=== PATIENT | male | born 2000 | race Caucasian/White ===

== ENCOUNTER 2020-11-18 21:26 | Emergency (ER) | payer MEDICAID ==
[~2020-11-18] VITALS: Ht 172.7 cm; Wt 55.5 kg
[2020-11-18] MEDS ORDERED: HYDROcodone/acetaminophen 10/325mg tab PO ONE (21:55)
--- NOTE | 2020-11-18 22:04 | NUR ---
Patient transported to [facility] by wheelchair.
[2020-11-18] MEDS ORDERED: propofol 10mg/ml 20ml vial IV ONE (22:10)
[2020-11-18] MEDS ORDERED: HYDR-3972 PO (23:21)
[2020-11-18 23:39] VITALS: BP 131/82
== END 2020-11-19 00:13 | disposition home or self-care (01) ==
LOC: ER 21:27
DX: S43.005A Unspecified dislocation of left shoulder joint, initial encounter (principal); J45.909 Unspecified asthma, uncomplicated; F17.200 Nicotine dependence, unspecified, uncomplicated; F12.90 Cannabis use, unspecified, uncomplicated; F15.90 Other stimulant use, unspecified, uncomplicated; Z98.890 Other specified postprocedural states; Z72.89 Other problems related to lifestyle; Z88.1 Allergy status to other antibiotic agents; Z79.899 Other long term (current) drug therapy; W19.XXXA Unspecified fall, initial encounter; Y93.89 Activity, other specified; Y92.89 Other specified places as the place of occurrence of the external cause; Y99.8 Other external cause status
CPT/HCPCS: 23650; 73030; 73060; 94799; 99152; 99285; J2704

== ENCOUNTER 2021-05-13 15:00 | Emergency (ER) | payer MEDICAID ==
[~2021-05-13] VITALS: Ht 175.3 cm; Wt 61.3 kg
[2021-05-13] MEDS ORDERED: HYDROcodone/acetaminophen 10/325mg tab PO ONE (15:25)
[2021-05-13] MEDS ORDERED: fentaNYL/PF 50MCG/1 ML 2ML syringe IV ONE (15:45)
[2021-05-13] MEDS ORDERED: propofol 10mg/ml 20ml vial IV ONE (17:00)
--- NOTE | 2021-05-13 17:18 | NUR ---
ADDITIONAL 20 MG PROPOFOL GIVEN DURING PROCEDURE.
--- NOTE | 2021-05-13 17:39 | NUR ---
TOTAL OF 120 MG PROPOFOL GIVEN DURING PROCEDURE. PATIENT DROWSY, BUT AROUSES TO VERBAL STIMULI. XRAY REVEALS SHOULDER REDUCTION, SO SLING APPLIED POST PROCEDURE. PATIENT REPORTS MUCH LESS PAIN AT PRESENT. VSS.
[2021-05-13 18:58] VITALS: BP 125/78
== END 2021-05-13 18:59 | disposition home or self-care (01) ==
LOC: ER 15:01
DX: S43.015A Anterior dislocation of left humerus, initial encounter (principal); M25.511 Pain in right shoulder; J45.909 Unspecified asthma, uncomplicated; F12.90 Cannabis use, unspecified, uncomplicated; F15.90 Other stimulant use, unspecified, uncomplicated; Z98.890 Other specified postprocedural states; Z72.89 Other problems related to lifestyle; Z88.1 Allergy status to other antibiotic agents; X58.XXXA Exposure to other specified factors, initial encounter; Y93.89 Activity, other specified; Y92.89 Other specified places as the place of occurrence of the external cause; Y99.8 Other external cause status
CPT/HCPCS: 23650; 73020; 73030; 94799; 96374; 99152; 99285; J3010

== ENCOUNTER 2021-06-15 18:05 | Emergency (ER) | payer MEDICAID ==
[~2021-06-15] VITALS: Ht 177.8 cm; Wt 63.0 kg
[2021-06-15] MEDS ORDERED: propofol 10mg/ml 20ml vial IV ONE (18:55)
[2021-06-15] MEDS ORDERED: fentaNYL/PF 50MCG/1 ML 2ML syringe IV ONE (19:30)
--- NOTE | 2021-06-15 19:56 | NUR ---
75mcg fentanyl wasted with Tyrell RN/ med not needed.
[2021-06-15 20:26] VITALS: BP 129/79
[2021-06-15] MEDS ORDERED: oxyCODONE/APAP 5-325mg tablet PO ONE (20:30)
== END 2021-06-15 21:19 | disposition home or self-care (01) ==
LOC: ER 18:08
DX: S43.005A Unspecified dislocation of left shoulder joint, initial encounter (principal); M25.512 Pain in left shoulder; M24.412 Recurrent dislocation, left shoulder; J45.909 Unspecified asthma, uncomplicated; F17.200 Nicotine dependence, unspecified, uncomplicated; Z98.890 Other specified postprocedural states; Z88.1 Allergy status to other antibiotic agents; W01.0XXA Fall on same level from slipping, tripping and stumbling without subsequent striking against object, initial encounter; Y93.89 Activity, other specified; Y92.89 Other specified places as the place of occurrence of the external cause; Y99.8 Other external cause status
CPT/HCPCS: 23650; 73020; 73030; 99152; 99285